=== PATIENT | female | born 1975 | race American Indian/Alaskan Native ===

== ENCOUNTER 2020-09-17 09:53 | Emergency (ER) | payer MEDICAID ==
[2020-09-17] MEDS ORDERED: ASPIRIN 325 MG TAB PO ONE (10:43)
--- NOTE | 2020-09-17 10:44 | Event Note ---
ED Screening Note ED Screening Note: Patient is a 45-year-old female presents emergency room with complaints of left- sided chest pain that began 2 days ago She states it feels like intermittent sharp pain She states sometimes it radiates across the chest She denies any radiation to the arm, jaw, back She denies any fever, nausea, vomiting, diarrhea, shortness of breath, cough, leg swelling Patient is a insulin-dependent diabetic and states that she has been out of her insulin for a week She does not check her blood sugar at home She has an allergy to IV dye and tramadol She is a current every day smoker This initial assessment/diagnostic orders/clinical plan/treatment(s) is/are subject to change based on patients health status, clinical progression and re- assessment by fellow clinical providers in the ED. Further treatment and workup at subsequent clinical providers discretion. Patient/guardian urged not to elope from the ED as their condition may be serious if not clinically assessed and managed. Initial orders include: Chest pain protocol,ua, trudy ph
[2020-09-17 11:03] LABS: Basophils % (Auto) 0.2 % (0.0-1.8); Eosinophils % (Auto) 0.4 % (0.0-4.3); Hematocrit 38.9 % (30.3-42.9); Hemoglobin 12.9 gm/dl (10.1-14.3); Lymphocytes # (Auto) 1.9 K/mm3 (1.2-5.4); Lymphocytes % (Auto) 36.3 % (13.4-35.0); Mean Corpuscular HGB Conc 33 % (30-34); Mean Corpuscular Volume 87 fl (79-97); Monocytes # (Auto) 0.4 K/mm3 (0.0-0.8); Monocytes % (Auto) 7.1 % (0.0-7.3); Platelet Count 205 K/mm3 (140-440); Red Blood Count 4.47 M/mm3 (3.65-5.03); Red Cell Distribution Width 13.7 % (13.2-15.2)
[2020-09-17 11:21] LABS: Alanine Aminotransferase 13 units/L (7-56); Albumin 4.5 g/dL (3.9-5); Blood Urea Nitrogen 7 mg/dL (7-17); Calcium 9.5 mg/dL (8.4-10.2); Hemolysis Index 11
--- NOTE | 2020-09-17 11:27 | XRay Report ---
CHEST 2 VIEWS INDICATION: Chest Pain. COMPARISON: FINDINGS: Support devices: None. Heart: Within normal limits. Lungs: No acute air space or interstitial disease. Pleura: No significant pleural effusion. No pneumothorax. Additional findings: None. IMPRESSION: 1. No acute findings. Signer Name: Bryan Patel MD Signed: 09/17/2020 11:23 AM Workstation Name: [id number]
[2020-09-17] MEDS ORDERED: INSULIN REGULAR, HUMAN 100 UNITS/1 ML IV ONE (11:54)
[2020-09-17] MEDS ORDERED: SODIUM CHLORIDE 0.9% 1000 ML 1,000 ML IV ONE ×2 (11:54)
[2020-09-17 11:59] LABS: BUN/Creatinine Ratio 12
--- NOTE | 2020-09-17 12:01 | Emergency Department Report ---
ED Chest Pain HPI - General Chief Complaint: Chest Pain Stated Complaint: CHEST PAIN, ABD PAIN, DENTAL PAIN Time Seen by Provider: 09/17/20 10:42 Source: patient Mode of arrival: Ambulatory Limitations: No Limitations - History of Present Illness Initial Comments: 45-year-old female with history of DM 2 on insulin presents complaining of mid substernal chest pain. Patient states that since waking up this morning she has had mid substernal chest pain which she describes as sharp and constant. For the past week she has had intermittent episodes of chest pain lasting varying lengths of time from a few minutes to an hour or so but says that today was the first time that these symptoms came on and were constant. In addition to the chest pain she reports that she has felt lightheaded and slightly confused/disoriented. She denies room spinning dizziness. She denies radiation of her pain. She denies any associated nausea/vomiting, shortness of breath, abdominal pain, palpitations, syncope, headache, neck pain, back pain, focal weakness, sensory changes, or any other complaints. She states that she has been out of her insulin for the past 2 weeks and her blood sugars have been running in the 400s to 500s. She says she has an appointment with her doctor tomorrow where she planned on getting a refill of her medications then but decided to come in today because of the chest pain. In addition to the name symptoms she reports that she has had intermittent dental pain localized to the right mandibular molar and left mandibular molar over the past few weeks and feels that the right mandibular molar is more painful today. - Related Data Home Medications Medication Instructions Recorded Confirmed Last Taken Insulin Detemir [Levemir VIAL] 25 units SUB-Q QHS 04/29/15 04/29/15 Unknown metFORMIN [Glucophage] 500 mg PO BID 04/29/15 04/29/15 Unknown Previous Rx's Medication Instructions Recorded Last Taken Type Fluconazole (Nf) [Diflucan TAB] 150 mg PO ONCE #1 tablet 04/29/15 Unknown Rx metFORMIN [Glucophage] 500 mg PO BID #60 tablet 04/29/15 Unknown Rx Amoxicillin/K Clav Tab [Augmentin 1 tab PO Q12HR #28 tab 09/17/20 Unknown Rx 875 mg] Ibuprofen [Motrin 600 MG tab] 600 mg PO Q8H PRN #15 tablet 06/20/21 Unknown Rx Allergies Allergy/AdvReac Type Severity Reaction Status Date / Time Iodinated Contrast Media Allergy Vomiting Verified 04/29/15 10:45 [Iodinated Contrast Media - IV Dye] tramadol Allergy Vomiting Verified 04/29/15 10:45 tramadol HCl [From Ultram] Allergy Vomiting Verified 04/29/15 10:45 Heart Score - HEART Score History: Slightly suspicious EKG: Normal Age: 45-65 Risk factors: 1-2 risk factors Troponin: < normal limit HEART Score: 2 - EKG Read Time Time EKG Completed: 10:35 EKG Read Time: 10:43 ED Review of Systems ROS: Stated complaint: CHEST PAIN, ABD PAIN, DENTAL PAIN Other details as noted in HPI Constitutional: denies: chills, fever Eyes: denies: eye pain, vision change ENT: denies: throat pain, congestion Respiratory: denies: cough, shortness of breath Cardiovascular: chest pain. denies: palpitations, syncope Gastrointestinal: denies: abdominal pain, nausea, vomiting Musculoskeletal: denies: back pain, myalgia Skin: denies: rash Neurological: confusion, other (lightheadedness). denies: headache, weakness, numbness ED Past Medical Hx - Past Medical History Previous Medical History?: Yes Hx Diabetes: Yes Additional medical history: herpes - Surgical History Past Surgical History?: Yes Hx Cholecystectomy: Yes Additional Surgical History: atopic - Social History Smoking Status: Current Every Day Smoker Substance Use Type: Alcohol - Medications Home Medications: Home Medications Medication Instructions Recorded Confirmed Last Taken Type Fluconazole (Nf) [Diflucan TAB] 150 mg PO ONCE #1 tablet 04/29/15 Unknown Rx Insulin Detemir [Levemir VIAL] 25 units SUB-Q QHS 04/29/15 04/29/15 Unknown H istory metFORMIN [Glucophage] 500 mg PO BID 04/29/15 04/29/15 Unknown History metFORMIN [Glucophage] 500 mg PO BID #60 tablet 04/29/15 Unknown Rx Amoxicillin/K Clav Tab [Augmentin 1 tab PO Q12HR #28 tab 09/17/20 Unknown Rx 875 mg] Ibuprofen [Motrin 600 MG tab] 600 mg PO Q8H PRN #15 tablet 09/17/20 Unknown Rx ED Physical Exam - General Limitations: No Limitations - Other Other exam information: GENERAL: Well developed and well nourished. No acute distress HEENT: Normocephalic. No obvious signs of trauma. Slightly dry mucous membranes. Intraoral examination reveals poor dentition throughout but with cracked and necrotic appearing bilateral mandibular molars. There is no obvious periapical abscess amenable to drainage. There is no elevation of the floor of the mouth. Airway is clear. There is no trismus or muffled voice. Posterior pharynx is within normal limits. EYES: Extraocular movements are intact. Pupils are equal round and reactive to light bilaterally NECK: Supple. Trachea is midline. No crepitus LUNGS: Nonlabored breathing. Equal chest rise bilaterally. Clear to auscultation bilaterally. HEART/CARDIOVASCULAR: Regular rate and rhythm. No murmurs or rubs. VASCULAR: 2+ peripheral pulses. Cap refill < 2 seconds ABDOMEN: Abdomen is soft and nondistended. There is no significant tenderness, guarding or rebound. SKIN: Skin is warm and dry NEURO: Patient is awake, alert, and oriented. service attendant II-XII grossly intact. No focal deficits. Normal motor and sensory exam throughout. Normal speech. MUSCULOSKELETAL: No obvious deformities. No significant tenderness. Normal ROM throughout. ED Course Vital Signs 09/17/20 09/17/20 09/17/20 10:39 12:14 12:17 Temperature 98.7 F Pulse Rate 95 H 85 105 H Respiratory 20 15 16 Rate Blood Pressure 147/99 Blood Pressure 136/94 [Left] O2 Sat by Pulse 100 100 99 Oximetry 09/17/20 09/17/20 09/17/20 12:31 13:01 13:31 Temperature Pulse Rate 98 H 98 H 115 H Respiratory 22 20 15 Rate Blood Pressure 146/95 143/99 138/93 Blood Pressure [Left] O2 Sat by Pulse 100 100 100 Oximetry 09/17/20 14:01 Temperature Pulse Rate Respiratory Rate Blood Pressure 149/95 Blood Pressure [Left] O2 Sat by Pulse 100 Oximetry MARCO score - Marco Score Age > 65: (0) No Aspirin use within the Past 7 Days: (0) No 3 or more CAD Risk Factors: (0) No 2 or more Angina events in past 24 hrs: (1) Yes Known CAD with more than 50% Stenosis: (0) No Elevated Cardiac Markers: (0) No ST Deviation Greater than 0.5mm: (0) No MARCO Score: 1 ED Medical Decision Making - Lab Data Result diagrams: 09/17/20 10:45 09/17/20 10:45 Lab Results 09/17/20 09/17/20 09/17/20 Range/Units 10:45 10:45 10:45 WBC 5.2 (4.5-11.0) K/mm3 RBC 4.47 (3.65-5.03) M/mm3 Hgb 12.9 (10.1-14.3) gm/dl Hct 38.9 (30.3-42.9) % MCV 87 (79-97) fl MCH 29 (28-32) pg MCHC 33 (30-34) % RDW 13.7 (13.2-15.2) % Plt Count 205 (140-440) K/mm3 Lymph % (Auto) 36.3 H (13.4-35.0) % [place] % (Auto) 7.1 (0.0-7.3) % Eos % (Auto) 0.4 (0.0-4.3) % Baso % (Auto) 0.2 (0.0-1.8) % Lymph # (Auto) 1.9 (1.2-5.4) K/mm3 [place] # (Auto) 0.4 (0.0-0.8) K/mm3 Eos # (Auto) 0.0 (0.0-0.4) K/mm3 Baso # (Auto) 0.0 (0.0-0.1) K/mm3 Seg Neutrophils % 56.0 (40.0-70.0) % Seg Neutrophils # 2.9 (1.8-7.7) K/mm3 VBG pH (7.320-7.420) Sodium 134 L (137-145) mmol/L Potassium 3.8 (3.6-5.0) mmol/L Chloride 95.1 L (98-107) mmol/L Carbon Dioxide 26 (22-30) mmol/L Anion Gap 17 mmol/L BUN 7 (7-17) mg/dL Creatinine 0.6 (0.6-1.2) mg/dL Estimated GFR > 60 ml/min BUN/Creatinine Ratio 12 % Glucose 407 H (65-100) mg/dL POC Glucose (70-105) mg/dL Calcium 9.5 (8.4-10.2) mg/dL Total Bilirubin 0.40 (0.1-1.2) mg/dL AST 13 (5-40) units/L ALT 13 (7-56) units/L Alkaline Phosphatase 103 (35-129) units/L Troponin T < 0.010 (0.00-0.029) ng/mL Total Protein 7.3 (6.3-8.2) g/dL Albumin 4.5 (3.9-5) g/dL Albumin/Globulin Ratio 1.6 % HCG, Qual Negative (Negative) Urine Color (Yellow) Urine Turbidity (Clear) Urine pH (5.0-7.0) Ur Specific [place] (1.003-1.030) Urine Protein (Negative) mg/dL Urine Glucose (UA) (Negative) mg/dL Urine Ketones (Negative) mg/dL Urine Blood (Negative) Urine Nitrite (Negative) Urine Bilirubin (Negative) Urine Urobilinogen (<2.0) mg/dL Ur Leukocyte Esterase (Negative) Urine WBC (Auto) (0.0-6.0) /HPF Urine RBC (Auto) (0.0-6.0) /HPF U Epithel Cells (Auto) (0-13.0) /HPF 09/17/20 09/17/20 09/17/20 Range/Units 10:45 11:22 12:16 WBC (4.5-11.0) K/mm3 RBC (3.65-5.03) M/mm3 Hgb (10.1-14.3) gm/dl Hct (30.3-42.9) % MCV (79-97) fl MCH (28-32) pg MCHC (30-34) % RDW (13.2-15.2) % Plt Count (140-440) K/mm3 Lymph % (Auto) (13.4-35.0) % [place] % (Auto) (0.0-7.3) % Eos % (Auto) (0.0-4.3) % Baso % (Auto) (0.0-1.8) % Lymph # (Auto) (1.2-5.4) K/mm3 [place] # (Auto) (0.0-0.8) K/mm3 Eos # (Auto) (0.0-0.4) K/mm3 Baso # (Auto) (0.0-0.1) K/mm3 Seg Neutrophils % (40.0-70.0) % Seg Neutrophils # (1.8-7.7) K/mm3 VBG pH 7.327 (7.320-7.420) Sodium (137-145) mmol/L Potassium (3.6-5.0) mmol/L Chloride (98-107) mmol/L Carbon Dioxide (22-30) mmol/L Anion Gap mmol/L BUN (7-17) mg/dL Creatinine (0.6-1.2) mg/dL Estimated GFR ml/min BUN/Creatinine Ratio % Glucose (65-100) mg/dL POC Glucose 319 H (70-105) mg/dL Calcium (8.4-10.2) mg/dL Total Bilirubin (0.1-1.2) mg/dL AST (5-40) units/L ALT (7-56) units/L Alkaline Phosphatase (35-129) units/L Troponin T (0.00-0.029) ng/mL Total Protein (6.3-8.2) g/dL Albumin (3.9-5) g/dL Albumin/Globulin Ratio % HCG, Qual (Negative) Urine Color Straw (Yellow) Urine Turbidity Clear (Clear) Urine pH 5.0 (5.0-7.0) Ur Specific [place] 1.029 (1.003-1.030) Urine Protein <15 mg/dl (Negative) mg/dL Urine Glucose (UA) >=500 (Negative) mg/dL Urine Ketones Tr (Negative) mg/dL Urine Blood Neg (Negative) Urine Nitrite Neg (Negative) Urine Bilirubin Neg (Negative) Urine Urobilinogen < 2.0 (<2.0) mg/dL Ur Leukocyte Esterase Neg (Negative) Urine WBC (Auto) < 1.0 (0.0-6.0) /HPF Urine RBC (Auto) 2.0 (0.0-6.0) /HPF U Epithel Cells (Auto) 6.0 (0-13.0) /HPF 09/17/20 Range/Units 13:43 WBC (4.5-11.0) K/mm3 RBC (3.65-5.03) M/mm3 Hgb (10.1-14.3) gm/dl Hct (30.3-42.9) % MCV (79-97) fl MCH (28-32) pg MCHC (30-34) % RDW (13.2-15.2) % Plt Count (140-440) K/mm3 Lymph % (Auto) (13.4-35.0) % [place] % (Auto) (0.0-7.3) % Eos % (Auto) (0.0-4.3) % Baso % (Auto) (0.0-1.8) % Lymph # (Auto) (1.2-5.4) K/mm3 [place] # (Auto) (0.0-0.8) K/mm3 Eos # (Auto) (0.0-0.4) K/mm3 Baso # (Auto) (0.0-0.1) K/mm3 Seg Neutrophils % (40.0-70.0) % Seg Neutrophils # (1.8-7.7) K/mm3 VBG pH (7.320-7.420) Sodium (137-145) mmol/L Potassium (3.6-5.0) mmol/L Chloride (98-107) mmol/L Carbon Dioxide (22-30) mmol/L Anion Gap mmol/L BUN (7-17) mg/dL Creatinine (0.6-1.2) mg/dL Estimated GFR ml/min BUN/Creatinine Ratio % Glucose (65-100) mg/dL POC Glucose (70-105) mg/dL Calcium (8.4-10.2) mg/dL Total Bilirubin (0.1-1.2) mg/dL AST (5-40) units/L ALT (7-56) units/L Alkaline Phosphatase (35-129) units/L Troponin T < 0.010 (0.00-0.029) ng/mL Total Protein (6.3-8.2) g/dL Albumin (3.9-5) g/dL Albumin/Globulin Ratio % HCG, Qual (Negative) Urine Color (Yellow) Urine Turbidity (Clear) Urine pH (5.0-7.0) Ur Specific [place] (1.003-1.030) Urine Protein (Negative) mg/dL Urine Glucose (UA) (Negative) mg/dL Urine Ketones (Negative) mg/dL Urine Blood (Negative) Urine Nitrite (Negative) Urine Bilirubin (Negative) Urine Urobilinogen (<2.0) mg/dL Ur Leukocyte Esterase (Negative) Urine WBC (Auto) (0.0-6.0) /HPF Urine RBC (Auto) (0.0-6.0) /HPF U Epithel Cells (Auto) (0-13.0) /HPF - EKG Data -: EKG Interpreted by Mn - EKG Data 09/17/20 12:10 Normal sinus rhythm. Normal axis. Normal intervals. No ectopy. No significant ST segment or T wave abnormalities. - Radiology Data CHEST 2 VIEWS INDICATION: Chest Pain. COMPARISON: FINDINGS: Support devices: None. Heart: Within normal limits. Lungs: No acute air space or interstitial disease. Pleura: No significant pleural effusion. No pneumothorax. Additional findings: None. IMPRESSION: 1. No acute findings. Signer Name: Bryan Patel MD Signed: 09/17/2020 10:23 AM Workstation Name: [id number] CT HEAD WITHOUT CONTRAST INDICATION / CLINICAL INFORMATION: dizziness, confusion. TECHNIQUE: All CT scans at this location are performed using CT dose reduction for ALARA by means of automated exposure control. COMPARISON: None available. FINDINGS: BRAIN PARENCHYMA: No acute intracranial hemorrhage. No evidence of recent infarct. No mass effect or midline shift. VENTRICULAR SYSTEM/EXTRA-AXIAL SPACES: Ventricles are normal for age. No extra-axial fluid collection. ORBITS: Normal as visualized. SKELETAL SYSTEM/SOFT TISSUES: Normal bones and soft tissues. PARANASAL SINUSES/MASTOID AIR CELLS: No significant abnormality. ADDITIONAL FINDINGS: None. IMPRESSION: 1. No acute intracranial abnormality. Signer Name: Gianni Cedeño MD Signed: 09/17/2020 12:58 PM Workstation Name: [id number] - Medical Decision Making 45-year-old female with history of diabetes on insulin but without insulin for the past 2 weeks presenting with 1 week of intermittent chest pain described as sharp and nonradiating with some associated lightheadedness and disorientation. She reports that the symptoms have been persistent since waking up this morning. However, she does report that her blood sugars have been running extremely high in the 400s to high 500s since running out of insulin. She reports that she has a appointment with her doctor tomorrow to refill her medications. She is afebrile and with normal vital signs with the exception of heart rate in the 90s. She has a nonfocal neurologic exam. She also reports bilateral (R> L) mandibular molar pain. Examination reveals poor dentition with cracked bilateral molars with some necrosis seen without obvious periapical abscess amenable to drainage. Will likely need antibiotics and follow-up with a dentist for this. Nonetheless, patient's heart sounds are normal and lungs are clear to auscultation. Labs were drawn in triage and reveal only elevated glucose of 407 without significant acidosis. Initial troponin is negative. There is no significant leukocytosis or anemia. Kidney function is normal. The re are no significant electrolyte abnormalities. EKG shows no ischemic changes. Heart score is 2 corresponding to low risk of major cardiac events. MARCO score is 1. I suspect that her symptoms are related to running out of insulin and having persistently elevated blood sugars. We will therefore administer 2 L of IV fluids and 5 units of IV insulin and recheck her blood sugar as well as reassess her symptoms. Will give aspirin 325 mg and follow-up repeat troponin. We will also perform CT of the head to rule out any acute intracranial findings given that she reports disorientation and lightheadedness intermittently for the past week. Repeat Accu-Chek reveals that her blood sugar is improving and is now 318. Therefore we will cancel the insulin and give 2 L of IV fluids as initially planned. On repeat assessment at 12:28 PM, the patient is lying comfortably in the bed. She reports that her symptoms are much improved and that her chest pain is resolved. She has only very mild lightheadedness at this point. I told her that we will administer the fluids, follow-up for repeat troponin as well as repeat blood sugar. If the second troponin is negative given her low heart score and the fact that she already has an appointment with her doctor tomorrow we will plan to discharge her with instructions to see her doctor soon as possible tomorrow for refills of her insulin. We will also give her a course of Augmentin with instructions to follow-up with a dentist as soon as possible for her bilateral mandibular molar necrosis and likely infection. The patient expressed understanding and agreement with this plan of care. On repeat assessment again at 1:30 PM, the patient remains chest pain-free. She does have dental pain for which we will give ibuprofen. Chest x-ray is negative. CT of the head reveals no acute abnormalities. We are currently awaiting repeat troponin and repeat [id number] glucose. Repeat troponin is negative. Repeat fingerstick glucose is 272. Patient remains chest pain-free. She will be discharged home with a prescription for Augmentin and ibuprofen as stated. She will follow up with her doctor tomorrow regarding the chest pain as well as her diabetes medications. She will return to the emergency department should she develop recurrent symptoms or any other new concerns. While in the room I personally measured the patient's heart rate and it was in the 80s to 90s. Critical care attestation.: If time is entered above; I have spent that time in minutes in the direct care of this critically ill patient, excluding procedure time. ED Disposition Clinical Impression: Hyperglycemia, Dehydration, Nonspecific chest pain, Odontogenic infection of jaw Disposition: - TO HOME OR SELFCARE Is pt being admited?: No Condition: Stable Instructions: Nonspecific Chest Pain, Adult, Dehydration, Adult, [id number], Hyperglycemia, [id number], Nonspecific Chest Pain, Adult, [id number] Additional Instructions: Please follow-up as soon as possible with a dentist for your dental infections. I have prescribed antibiotics which you should be taking twice a day for 14 days. However, this is only temporary and will not cure/fix the problem. The problem can only be fixed by seeing a dentist. Prescriptions: Amoxicillin/K Clav Tab [Augmentin 875 mg] 1 tab PO Q12HR #28 tab Ibuprofen [Motrin 600 MG tab] 600 mg PO Q8H PRN #15 tablet PRN Reason: Pain Referrals: ZAK DUARTE MD [Staff Physician] - 3-5 Days
[2020-09-17 12:02] LABS: Bilirubin,Urine NEG (Negative); Blood,Urine NEG (Negative); Color,Urine Straw (Yellow); Protein,Urine <15 mg/dL mg/dL (Negative); Urobilinogen,Urine < 2.0 mg/dL (<2.0); WBC,Urine < 1.0 /HPF (0.0-6.0)
[2020-09-17] MEDS ORDERED: AMOXICILLIN/K CLAV 875/125MG TAB PO ONE (12:20)
[2020-09-17] MEDS ORDERED: IBUPROFEN 800 MG TAB PO ONE (13:49)
--- NOTE | 2020-09-17 14:02 | Cat Scan Report ---
CT HEAD WITHOUT CONTRAST INDICATION / CLINICAL INFORMATION: dizziness, confusion. TECHNIQUE: All CT scans at this location are performed using CT dose reduction for ALARA by means of automated exposure control. COMPARISON: None available. FINDINGS: BRAIN PARENCHYMA: No acute intracranial hemorrhage. No evidence of recent infarct. No mass effect or midline shift. VENTRICULAR SYSTEM/EXTRA-AXIAL SPACES: Ventricles are normal for age. No extra-axial fluid collection . ORBITS: Normal as visualized. SKELETAL SYSTEM/SOFT TISSUES: Normal bones and soft tissues. PARANASAL SINUSES/MASTOID AIR CELLS: No significant abnormality. ADDITIONAL FINDINGS: None. IMPRESSION: 1. No acute intracranial abnormality. Signer Name: Gianni Cedeño MD Signed: 09/17/2020 1:58 PM Workstation Name: [id number]
[2020-09-17 14:09] VITALS: BP 149/95
--- NOTE | 2020-09-21 09:40 | Electrocardiograph Report ---
[facility] Test Date: 2020-09-17 Test Time: 10:35:53 Pat Name: JUJU MEJIAS Department: Room: Gender: F [employer] Metalworker: Sakshi ARTHUR RN : 1975 Requested By: AMI JOHNSON Order Number: [id number] Reading MD: Juan Osborne Measurements Intervals [place] Rate: 102 P: 56 OK: 169 QRS: 42 QRSD: 73 T: 55 QT: 340 QTc: 445 Interpretive Statements Sinus tachycardia Probable left atrial enlargement No previous ECG available for comparison Electronically Signed On 09-21-2020 9:40:32 EDT by Juan Osborne
== END 2020-09-17 15:01 | disposition home or self-care (01) ==
LOC: ED 09:53
DX: E11.65 Type 2 diabetes mellitus with hyperglycemia (principal); E86.0 Dehydration; M27.2 Inflammatory conditions of jaws; R07.89 Other chest pain; F17.200 Nicotine dependence, unspecified, uncomplicated; Z90.49 Acquired absence of other specified parts of digestive tract; Z98.890 Other specified postprocedural states; Z88.6 Allergy status to analgesic agent; Z91.041 Radiographic dye allergy status; Z88.8 Allergy status to other drugs, medicaments and biological substances; Z79.899 Other long term (current) drug therapy
CPT/HCPCS: 36415; 70450; 71046; 80053; 81001; 82805; 82962; 84484; 84703; 85025; 93005; 96360; 99285; J7030